=== PATIENT | male | born 1990 | race Caucasian/White ===

== ENCOUNTER → 2016-10-16 | Outpatient (CLI) | payer OTHER ==
--- NOTE | 2016-10-18 15:16 | DI ---
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 Previous Exam: March 16, 2016 Findings: Multiple helically acquired CT images are obtained through the abdomen and pelvis following the oral and intravenous administration of contrast. The urinary bladder is unremarkable. There is no retroperitoneal lymphadenopathy. There is no pelvic sidewall invasion. The appendix is normal. The liver, gallbladder, spleen, pancreas, adrenals and kidneys are unremarkable. Skeletal structures are also unremarkable. Impression: No evidence of metastatic disease.
== END ==
LOC: CT 10:04
PROVIDERS: ATTEND Urology
DX: C62.11 Malignant neoplasm of descended right testis (principal)
CPT/HCPCS: 74177